=== PATIENT | female | born 1940 | race Caucasian/White ===

== ENCOUNTER 2023-09-06 12:32 | Observation (INO) | payer OTHER ==
[2023-09-06 12:38] VITALS: BMI 26.6
[2023-09-06] MEDS ORDERED: ONDANSETRON 4 MG/2 ML VIAL ONE ×2 (13:41→21:16)
[2023-09-06] MEDS: ONDANSETRON 4 MG/2 ML VIAL IVPB ONE (13:49)
[2023-09-06] MEDS: SODIUM CHLORIDE 0.9% 500 ML INFUS.BAG IV ONE (13:49)
[2023-09-06 13:50] LABS: BASO % 0.3 % (0-2.0); HEMATOCRIT 35.5 % (32.4-45.2); LYMPH % 9.1 % (8-40); MCH 27.7 pg (25.7-33.7); MCHC 33.8 g/dl (32.0-36.0); MEAN CELL VOLUME 81.9 fl (80-96); MEAN PLT VOLUME 7.4 fl (7.5-11.1); NEUT % 82.6 % (42.8-82.8); PLATELET COUNT 216 10^3/uL (134-434); RBC 4.33 M/mm3 (3.60-5.2); RDW 13.1 % (11.6-15.6); WHITE BLOOD COUNT 9.5 K/mm3 (4.0-10.0)
[2023-09-06 13:57] LABS: INR 1.07 (0.83-1.09); PROTHROMBIN TIME (PATIENT) 12.1 SEC (9.7-13.0)
[2023-09-06 13:59] LABS: ACTIVATED PTT 25.9 SECONDS (25.2-36.5)
[2023-09-06 14:13] LABS: POTASSIUM 4.6 mmol/L (3.5-5.1)
[2023-09-06 14:16] LABS: ALBUMIN 3.8 g/dl (3.4-5.0); BLOOD UREA NITROGEN 18.1 mg/dL (7-18); CALCIUM 9.4 mg/dL (8.5-10.1); MAGNESIUM 1.8 mg/dL (1.8-2.4)
[2023-09-06] MEDS: morphine CARPU-JECT 2 MG/1 ML DISP.SYRIN IVPUSH ONE (14:18)
[2023-09-06 14:19] LABS: CREATININE 1.1 mg/dL (0.55-1.3); PHOSPHOROUS 2.9 mg/dL (2.5-4.9)
[2023-09-06 14:21] LABS: BILIRUBIN,TOTAL 1.5 mg/dL (0.2-1)
[2023-09-06] MEDS: ACETAMINOPHEN 1000 MG/100 ML BAG IVPB ONE ×2 (14:47→16:23)
[2023-09-06] MEDS ORDERED: ACETAMINOPHEN INJECTION 100 ML IVPB ONE (16:16)
[2023-09-06 18:00] LABS: EPI CELLS 3 /uL (0-25.1); HYALINE CASTS 0 /uL (0-3.1); PH,URINE 6.5 (5.0-8.0); URINE APPEARANCE CLEAR; URINE BACTERIA 1 /uL (0-1359); URINE BILIRUBIN NEGATIVE (NEGATIVE); URINE COLOR YELLOW; URINE GLUCOSE (UA) NEGATIVE (NEGATIVE); URINE KETONE TRACE (NEGATIVE); URINE LEUK ESTERASE NEGATIVE (NEGATIVE); URINE NITRITE NEGATIVE (NEGATIVE); URINE PROTEIN TRACE (NEGATIVE); URINE RBC 53 /uL (0-23.9); URINE UROBILINOGEN 0.2 mg/dL (0.2-1.0); URINE WBC 6 /uL (0-25.8)
[2023-09-06] MEDS ORDERED: ACETAMINOPHEN 1000 MG/100 ML BAG IVPB PRN (20:50)
[2023-09-06] MEDS: ONDANSETRON 4 MG/2 ML VIAL IVPUSH PRN (21:31)
[2023-09-06] MEDS: SODIUM CHLORIDE 1,000 ML IV SCH (22:38)
[2023-09-06] MEDS ORDERED: HYDROCODONE ACETAMIN PO PRN (22:49)
[2023-09-06] MEDS ORDERED: TAMSULOSIN HCL 0.4 MG CAP ONE (22:57)
[2023-09-06] MEDS ORDERED: hydrALAZINE HCL 20 MG/ML VIAL IVPUSH PRN ×2 (22:58→23:19)
[2023-09-06] MEDS: TAMSULOSIN HCL 0.4 MG CAP PO ONE (23:02)
[2023-09-06] MEDS ORDERED: POLYETHYLENE GLYCOL (HEALTHYLAX) 3350 17 GM PACKET ONE (23:13)
[2023-09-06] MEDS: POLYETHYLENE GLYCOL (HEALTHYLAX) 3350 17 GM PACKET PO SCH (23:20)
[2023-09-07 06:55] LABS: HEMATOCRIT 31.4 % (32.4-45.2); HEMOGLOBIN 10.8 GM/dL (10.7-15.3); MCH 28.2 pg (25.7-33.7); MCHC 34.4 g/dl (32.0-36.0); MEAN PLT VOLUME 7.3 fl (7.5-11.1); PLATELET COUNT 166 10^3/uL (134-434); RBC 3.83 M/mm3 (3.60-5.2); WHITE BLOOD COUNT 8.5 K/mm3 (4.0-10.0)
[2023-09-07 07:10] LABS: POTASSIUM 3.4 mmol/L (3.5-5.1)
[2023-09-07 07:13] LABS: CALCIUM 8.4 mg/dL (8.5-10.1)
[2023-09-07 07:14] LABS: MAGNESIUM 1.6 mg/dL (1.8-2.4)
[2023-09-07 07:17] LABS: CREATININE 1.1 mg/dL (0.55-1.3); PHOSPHOROUS 3.2 mg/dL (2.5-4.9)
[2023-09-07] MEDS ORDERED: LACTATED RINGERS SOLUTION 1,000 ML IV SCH (07:30)
[2023-09-07] MEDS ORDERED: FENTANYL CITRATE/PF 50 MCG/ML VIAL ONE (07:35)
[2023-09-07] MEDS ORDERED: SUCCINYLCHOLINE CHLORIDE 200 MG/10 ML SYRINGE ONE (07:35)
[2023-09-07] MEDS ORDERED: PROPOFOL 40 ML ONE (07:35)
[2023-09-07] MEDS ORDERED: MIDAZOLAM HCL 2 MG/2 ML SINGLE DOSE VIAL ONE (07:35)
[2023-09-07] MEDS ORDERED: DEXAMETHASONE SOD PHOSPHATE 4 MG/1 ML VIAL ONE (07:45)
[2023-09-07] MEDS ORDERED: ONDANSETRON 4 MG/2 ML VIAL ONE (07:45)
[2023-09-07] MEDS ORDERED: ACETAMINOPHEN 325 MG TABLET (FP) PO PRN (07:46)
[2023-09-07] MEDS ORDERED: GENTAMICIN SO4 80 MG/2 ML VIAL ONE (07:49)
[2023-09-07] MEDS: GENTAMICIN 80MG PREMIX BAG IVPB ONE (07:54)
[2023-09-07] MEDS ORDERED: ceFAZolin SODIUM 1 GM VIAL ONE (07:54)
[2023-09-07] MEDS: ceFAZolin SODIUM 1 GM VIAL IVPB ONE (07:55)
[2023-09-07] MEDS ORDERED: TAMSULOSIN HCL 0.4 MG CAP PO SCH (08:30)
[2023-09-07] MEDS ORDERED: MAGNESIUM 1GM/D5W - 1 GM/100 ML IVPB IVPB ONE (08:45)
[2023-09-07] MEDS ORDERED: ONDANSETRON 4 MG/2 ML VIAL IVPUSH PRN (08:59)
[2023-09-07] MEDS ORDERED: SODIUM CHLORIDE 1,000 ML IV SCH (08:59)
[2023-09-07] MEDS ORDERED: hydrALAZINE HCL 20 MG/ML VIAL IVPUSH PRN (08:59)
[2023-09-07] MEDS ORDERED: ACETAMINOPHEN 1000 MG/100 ML BAG IVPB PRN (08:59)
[2023-09-07] MEDS ORDERED: HYDROCODONE ACETAMIN PO PRN (08:59)
[2023-09-07] MEDS: POTASSIUM CHLORIDE ORAL LIQUID 20 MEQ/15 ML PO ONE (09:14)
[2023-09-07] MEDS ORDERED: FENTANYL CITRATE/PF 50 MCG/ML VIAL IVPUSH PRN (09:16)
[2023-09-07] MEDS ORDERED: ATENOLOL 50 MG TABLET (FP) PO SCH ×3 (10:00)
[2023-09-07] MEDS ORDERED: POLYETHYLENE GLYCOL (HEALTHYLAX) 3350 17 GM PACKET PO PRN ×2 (10:00)
[2023-09-07 10:06] VITALS: RESP 20
[2023-09-07 14:35] VITALS: BP 132/56; PULSE 79; TEMP 98
[2023-09-07] MEDS ORDERED: SENNOSIDES 8.6MG TABLET (FP) PO PRN ×2 (22:00)
[2023-09-07] MEDS ORDERED: ATORVASTATIN CA 20 MG TABLET (FP) PO SCH ×2 (22:00)
[2023-09-07] MEDS ORDERED: SENNOSIDES 8.6MG TABLET (FP) PO ONE (23:09)
== END 2023-09-07 14:10 | disposition home or self-care (01) ==
LOC: JER 12:32 → JERBED 18:14
PROVIDERS: ADMIT Internal Medicine; ATTEND Nurse Practitioner
PROC: 3E033NZ Introduction of Analgesics, Hypnotics, Sedatives into Peripheral Vein, Percutaneous Approach (ICD-10-PCS; 2023-09-06)
PROC: 3E033GC Introduction of Other Therapeutic Substance into Peripheral Vein, Percutaneous Approach (ICD-10-PCS; 2023-09-06)
PROC: 3E0337Z Introduction of Electrolytic and Water Balance Substance into Peripheral Vein, Percutaneous Approach (ICD-10-PCS; 2023-09-06)
PROC: 0TF78ZZ Fragmentation in Left Ureter, Via Natural or Artificial Opening Endoscopic (ICD-10-PCS; principal; 2023-09-07 07:30)
DX: N20.1 Calculus of ureter (principal); N13.8 Other obstructive and reflux uropathy; R82.2 Biliuria; E78.5 Hyperlipidemia, unspecified; Z87.442 Personal history of urinary calculi; M81.0 Age-related osteoporosis without current pathological fracture; K59.00 Constipation, unspecified; I10 Essential (primary) hypertension; M48.00 Spinal stenosis, site unspecified; R60.0 Localized edema; Z96.641 Presence of right artificial hip joint; N17.9 Acute kidney failure, unspecified
CPT/HCPCS: 52332; 52351; 96361; 96374; 96375; 96376; C1747; 36415; 74177-TC; 76000-TC-FY; 80048; 80053; 81003; 83690; 83735; 84100; 84484; 85025; 85027; 85610; 85730; 86850; 86900; 86901; 87086; 93005; 93010; 94760; 99285-25; C2617; G0378; J0131